=== PATIENT | female | born 1990 | race Caucasian/White ===

== ENCOUNTER 2016-07-11 08:56 | Emergency (ER) | payer OTHER ==
[~2016-07-11] VITALS: Wt 58.0 kg
[~2016-07-11 08:56] MED LIST: AZIT250T94 PO; PREN1COM11 PO
[2016-07-11] MEDS ORDERED: ACET500C5 PO (09:33)
[2016-07-11] MEDS ORDERED: AMOX1TAB10 PO (09:33)
--- NOTE | 2016-07-11 11:00 | ERD ---
ER Documentation Chief Complaint Date/Time DATE: 07/11/16 TIME: 10:58 Chief Complaint sinus headache, has nasal congestion, sinus pain HPI 25-year-old female patient with no significant past medical history presents the ED complaining of sinus pain on the right side of her face that started about 5 days ago. Describes the pain as pulsating and rates it a 4 out of 10. Denies any head or neck trauma. Denies any neck stiffness, fever, chills, abdominal pain, nausea, vomiting, diarrhea, body aches. Denies any sick contacts. ROS All systems reviewed and are negative except as per history of present illness. Medications Home Meds Active Scripts Acetaminophen* (Tylophen*) 500 Mg Capsule, 1 CAP PO Q6H Y for PAIN AND OR ELEVATED TEMP, #20 CAP Prov:RENÉE MARINA PA-C 07/11/16 Amoxicillin/Potassium Clav (Amox-Clav 875-125 mg Tablet) 875-125 mg Tab, 1 TAB PO BID for 5 Days, #14 TAB Prov:RENÉE MARINA PA-C 07/11/16 Azithromycin* (Zithromax*) 250 Mg Tablet, 250 MG PO .ZPACK DIRECTED, #6 TAB TAKE 500 MG (2 TABS) THE FIRST DAY THEN 250 MG (1 TAB) DAYS 2-5 Prov:DARRIAN ARROYO PA-C 04/16/15 Reported Medications No.39/Iron/Fa #6/Dha (PRENA1 PLUS COMBO PACK) 1 Each Combo..pkg, 1 EACH PO DAILY 08/23/12 [none] No Conflict Check 12/27/11 Allergies Allergies: Uncoded Allergies: NONE (Allergy, 12/27/11) PMhx/Soc History of Surgery: No Anesthesia Reaction: No Hx Neurological Disorder: No Hx Respiratory Disorders: No Hx Cardiac Disorders: No Hx Psychiatric Problems: No Hx Miscellaneous Medical Probl: No Hx Alcohol Use: No Hx Substance Use: No Hx Tobacco Use: No Physical Exam Vitals Vital Signs Date Time Temp Pulse Resp B/P Pulse Ox O2 Delivery O2 Flow Rate FiO2 07/11/16 08:57 98.1 92 18 123/63 99 Physical Exam Const: [id number], well-nourished. In no acute distress. Head: Atraumatic, normocephalic. Tenderness to palpation of the right frontal and maxillary sinuses. Eyes: Normal Conjunctiva without injection. No purulent discharge. PERRLA. EOMI ENT: Normal external ear. Ear canal without erythema. Tympanic membrane pearly duff without effusion or bulging. Nasal canal clear with normal turbinates. Moist oropharynx without tonsillar exudates. Non-erythematous pharynx. Uvula midline. No drooling. No trismus. Neck: No cervical midline tenderness. Full range of motion. No meningismus. No cervical lymphadenopathy. No JVD. Resp: Clear to auscultation bilaterally. No wheezing, rhonchi, rales, or crackles. No accessory muscle use. No retractions. Cardio: Regular rate and rhythm. No murmurs, rubs or gallops. Abd: Soft, non tender, non distended. Normal bowel sounds. No palpable masses. No rebound tenderness. No guarding. Negative McBurney's Point. Negative German's Sign. Skin: Normal skin turgor. No petechiae or rashes Back: No midline tenderness. No CVA tenderness. Ext: No cyanosis, or edema. Distal pulses intact bilaterally. Neur: Awake and alert. Normal gait. Normal coordination. Cranial Nerves II- VII intact. Normal finger to nose. Muscle strength 5/5. Sensation intact. Psych: Normal Mood and Affect Procedures/MDM This is a 25-year-old female patient with no significant past medical history presents the ED complaining of right sinus pain. Patient is afebrile and nontoxic-appearing. Patient has normal vital signs. Patient's symptoms are likely due to sinusitis. Patient's physical exam is consistent with sinusitis. Patient's physical exam include lungs which were clear to auscultation and a normal pulse oximetry. Bilateral ears pearly camara. No tenderness to palpation of tragus or mastoid. Low suspicion for mastoiditis, otitis externa, otitis media. Patient is speaking in full sentences. There is a low suspicion for pneumonia, strep pharyngitis, epiglottitis, croup, sinusitis, peritonsillar abscess, hands foot mouth disease, retropharyngeal abscess, meningitis, sepsis, acute abdomen or other emergent conditions. Discharge medications: Tylenol, Augmentin Follow up with primary care physician in 1-2 days. Instructed patient to return to the ED sooner for any worsening symptoms. Patient's questions were answered. Patient understood and agreed with discharge plan. Patient discharged stable. Departure Diagnosis: Primary Impression: Sinusitis Sinusitis location: maxillary Chronicity: unspecified Qualified Code: J32.0 - Maxillary sinusitis, unspecified chronicity Condition: Stable Patient Instructions: Sinusitis, Abx Tx Referrals: COMMUNITY CLINICS YOU HAVE RECEIVED A MEDICAL SCREENING EXAM AND THE RESULTS INDICATE THAT YOU DO NOT HAVE A CONDITION THAT REQUIRES URGENT TREATMENT IN THE EMERGENCY DEPARTMENT. FURTHER EVALUATION AND TREATMENT OF YOUR CONDITION CAN WAIT UNTIL YOU ARE SEEN IN YOUR DOCTORS OFFICE WITHIN THE NEXT 1-2 DAYS. IT IS YOUR RESPONSIBILITY TO MAKE AN APPOINTMENT FOR FOLOW-UP CARE. IF YOU HAVE A PRIMARY DOCTOR --you should call your primary doctor and schedule an appointment IF YOU DO NOT HAVE A PRIMARY DOCTOR YOU CAN CALL OUR PHYSICIAN REFERRAL HOTLINE AT IF YOU CAN NOT AFFORD TO SEE A PHYSICIAN YOU CAN CHOSE FROM THE FOLLOWING [facility] [address] [facility] [address] [employer] [facility] [address] [facility] [address] [facility] [address] [facility]. [facility] [address] [facility]. [facility] YOU HAVE RECEIVED A MEDICAL SCREENING EXAM AND THE RESULTS INDICATE THAT YOU DO NOT HAVE A CONDITION THAT REQUIRES URGENT TREATMENT IN THE EMERGENCY DEPARTMENT. FURTHER EVALUATION AND TREATMENT OF YOUR CONDITION CAN WAIT UNTIL YOU ARE SEEN IN YOUR DOCTORS OFFICE WITHIN THE NEXT 1-2 DAYS. IT IS YOUR RESPONSIBILITY TO MAKE AN APPOINTMENT FOR FOLOW-UP CARE. IF YOU HAVE A PRIMARY DOCTOR --you should call your primary doctor and schedule and appointment IF YOU DO NOT HAVE A PRIMARY DOCTOR YOU CAN CALL OUR PHYSICIAN REFERRAL HOTLINE AT . IF YOU CAN NOT AFFORD TO SEE A PHYSICIAN YOU CAN CHOSE FROM THE FOLLOWING [facility] INSTITUTIONS: [facility] [address] [place] [address] [facility] [address] [place] [address] [facility] + [address] [address] [facility] URGENT CARE/SPECIALTIES Additional Instructions: Visite a pathak mddanny garciaana para un EXAMEN para mayito derivacin a especialista en o dos nariz garganta. Regrese a estas instalaciones si no se mejora jaciel esper bamos o jaciel le dijimos. RENÉE MARINA PA-C July 11, 2016 11:00
== END 2016-07-11 10:25 | disposition home or self-care (01) ==
LOC: FTE 08:56
DX: J32.0 Chronic maxillary sinusitis (principal)
CPT/HCPCS: 99283

== ENCOUNTER 2017-02-06 05:45 | Emergency (ER) | payer SELFPAY ==
[~2017-02-06] VITALS: Ht 160 cm; Wt 64.9 kg
[~2017-02-06 05:45] MED LIST changes: +ACET500C5 PO; +AMOX1TAB10 PO
[2017-02-06 05:48] VITALS: Ht 160 cm; Wt 64.9 kg
[2017-02-06] MEDS ORDERED: FLUT9.9S NASAL (06:10)
[2017-02-06] MEDS ORDERED: AZIT250T94 PO (06:10)
[2017-02-06] MEDS ORDERED: PHEN-530 PO (06:10)
--- NOTE | 2017-02-06 06:13 | ERD ---
ER Documentation Chief Complaint Chief Complaint difficulty breathing nasally states there are cysts in nostril x 2 wks. HPI This 26-year-old female presents with nasal congestion for last 2 weeks. She has mostly clear with slight yellow discharge present no history of fevers or cough. ROS All systems reviewed and are negative except as per history of present illness. Medications Home Meds Active Scripts Phenylephrine/Dm/Acetaminop/GG (Sudafed PE Pressure+Pain+Cold) 1 Each Tablet, 1 EACH PO BID for 7 Days, #14 TAB Prov:BRADY LAW MD 02/06/17 Azithromycin* (Zithromax*) 250 Mg Tablet, 250 MG PO .ZPASHERICE DIRECTED, #6 TAB TAKE 500 MG (2 TABS) THE FIRST DAY THEN 250 MG (1 TAB) DAYS 2-5 Prov:BRADY LAW MD 02/06/17 Fluticasone Propionate (Flonase Allergy Relief) 9.9 Ml [place].susp, 1 SPRAY NASAL DAILY for 14 Days, #1 BOTTLE TO EACH NOSTRIL Prov:BRADY LAW MD 02/06/17 Acetaminophen* (Tylophen*) 500 Mg Capsule, 1 CAP PO Q6H Y for PAIN AND OR ELEVATED TEMP, #20 CAP Prov:RENÉE MARINA PA-C 07/11/16 Amoxicillin/Potassium Clav (Amox-Clav 875-125 mg Tablet) 875-125 mg Tab, 1 TAB PO BID for 5 Days, #14 TAB Prov:RENÉE MARINA PA-C 07/11/16 Azithromycin* (Zithromax*) 250 Mg Tablet, 250 MG PO .ZPACK DIRECTED, #6 TAB TAKE 500 MG (2 TABS) THE FIRST DAY THEN 250 MG (1 TAB) DAYS 2-5 Prov:DARRIAN ARROYO PA-C 04/16/15 Reported Medications No.39/Iron/Fa #6/Dha (PRENA1 PLUS COMBO PACK) 1 Each Combo..pkg, 1 EACH PO DAILY 08/23/12 [none] No Conflict Check 12/27/11 Allergies Allergies: Uncoded Allergies: NONE (Allergy, 12/27/11) PMhx/Soc History of Surgery: No Anesthesia Reaction: No Hx Neurological Disorder: No Hx Respiratory Disorders: No Hx Cardiac Disorders: No Hx Psychiatric Problems: No Hx Miscellaneous Medical Probl: No Hx Alcohol Use: No Hx Substance Use: No Hx Tobacco Use: No Physical Exam Vitals Vital Signs Date Time Temp Pulse Resp B/P Pulse Ox O2 Delivery O2 Flow Rate FiO2 02/06/17 05:48 98.1 74 18 124/70 99 Physical Exam Const: [] Alert, [id number] per Head: Atraumatic Eyes: Normal Conjunctiva ENT: Normal External Ears, Nose and Mouth. TMs normal. 3+ nasal congestion. Slight maxillary tenderness. Postnasal drip. Neck: Full range of motion..~ No meningismus. Resp: Clear to auscultation bilaterally Cardio: Regular rate and rhythm, no murmurs Abd: Soft, non tender, non distended. Normal bowel sounds Skin: No petechiae or rashes Back: No midline or flank tenderness Ext: No cyanosis, or edema Neur: Awake and alert Psych: Normal Mood and Affect Procedures/MDM Patient presents with URI symptoms and nasal congestion. Given duration she will be treated with Zithromax, Flonase and Sudafed although may be viral illness allergic rhinitis or nasal polyposis. Discharged home and primary care follow-up recommendations for ENT for persistent symptoms. The patient was stable with no new complaints during the ER course. Clinically, there is no current evidence to suggest meningitis, sepsis, acute abdomen, pneumonia, acute coronary syndrome, pulmonary embolism, or any other emergent condition appearing to require further evaluation or hospitalization. The patient should certainly return for any new or worsening symptoms per the aftercare instructions. They should otherwise follow-up with her primary care doctor for reevaluation this week. Departure Diagnosis: Primary Impression: Sinusitis Sinusitis location: maxillary Chronicity: acute Recurrence: not specified as recurrent Qualified Code: J01.00 - Acute maxillary sinusitis, recurrence not specified Condition: Stable Patient Instructions: Sinusitis, Abx Tx Additional Instructions: Cheque otro vez con pathak doctor primario en el proximo ryan or regresa para mas o nueva simptomas. BRADY LAW MD Feb 06, 2017 06:13
== END 2017-02-06 06:15 | disposition home or self-care (01) ==
LOC: FTE 05:45
DX: J01.00 Acute maxillary sinusitis, unspecified (principal)
CPT/HCPCS: 99283

== ENCOUNTER 2017-04-21 14:48 | Emergency (ER) | END 2017-04-21 17:22 | disposition home or self-care (01) ==

== ENCOUNTER 2017-05-26 13:30 | Inpatient (IN) | END 2017-05-27 12:45 | disposition home or self-care (01) | DRG 342 ==